=== PATIENT | male | born 1935 | race African-American/Black ===

== ENCOUNTER 2017-03-11 16:41 | Emergency (ER) | payer MEDICARE, BC ==
[~2017-03-11] VITALS: Ht 170.2 cm; Wt 69.4 kg
[2017-03-11] MEDS ORDERED: Morgan Lens TOPIC ONE (17:30)
[2017-03-11] MEDS ORDERED: PredniSONE 20mg tab ORAL ONE (17:30)
[2017-03-11] MEDS ORDERED: NS Irrig 1000ml 1,000 ML IRRIG ONE (17:30)
[2017-03-11] MEDS ORDERED: Proparacaine 0.5% Opth Soln 15ml BOTH EYES ONE (17:30)
[2017-03-11] MEDS ORDERED: DiphenhydrAMINE 50mg/ml Inj IM ONE (17:30)
[2017-03-11] MEDS ORDERED: BENADRYL25 MG ORAL (19:17)
[2017-03-11] MEDS ORDERED: PREDNISONE20 MG ORAL (19:17)
[2017-03-11 19:31] VITALS: BP 145/58
--- NOTE | 2017-03-11 22:56 | Emergency Room Report ---
History of Present Illness General Chief Complaint: Allergies Source: Patient (KATHY HAYES) Present Illness HPI The patient is an 81-year-old male presenting for possible allergic reaction. The patient states he was outside working with plants when he touched his face and then noticed redness and itching. He has also had increased watering to the eyes and redness. He denies any pain. He denies any previous allergic reactions. He has not taken any medications yet. He denies any other symptoms including nausea, vomiting, fever, chills, chest pain, shortness of breath, dizziness (KATHY HAYES) Allergies: Coded Allergies: No Known Allergies (Unverified , 03/11/17) Patient History Past Medical History: see triage record Pertinent Family History: none Reviewed Nursing Documentation: PMH: Agreed, PSxH: Agreed (KATHY HAYES) Nursing Documentation-PMH Past Medical History: No History, Except For Hx Hypertension: Yes Hx Asthma: Yes Hx Diabetes: Yes (KATHY HAYES) Review of Systems All Other Systems: negative except mentioned in HPI (KATHY HAYES) Physical Exam Vital Signs Date Time Temp Pulse Resp B/P Pulse Ox O2 Delivery O2 Flow Rate FiO2 03/11/17 17:11 98.4 84 18 145/58 98 Room Air Sp02 EP Interpretation: reviewed, normal General Appearance: no apparent distress, alert, GCS 15, non-toxic Head: normocephalic, atraumatic Eyes: bilateral eye EOMI, bilateral eye PERRL, bilateral eye Scleral Injection , bilateral eye lid inflammation ENT: hearing grossly normal, normal pharynx, no angioedema, normal voice, uvula midline Neck: full range of motion, supple/symm/no masses Respiratory: chest non-tender, lungs clear, normal breath sounds, no wheezing, speaking full sentences Musculoskeletal: back normal, gait/station normal, normal range of motion, non- tender Neurologic: alert, oriented x3, responsive, motor strength/tone normal, sensory intact, normal gait, speech normal Psychiatric: judgement/insight normal, memory normal, mood/affect normal, no suicidal/homicidal ideation Skin: rash - macular erythematous rash to face Lymphatic: no adenopathy (KATHY HAYES) Medical Decision Making PA Attestation Dr. Rebolledo is my supervising physician. Patient management was discussed with my supervising physician (KATHY HAYES) Medicare Attestation The history of Leodan Cneteno has been reviewed and management options for him have been examined and discussed by Иван Rebolledo. I have personally examined and interviewed the patient. (ИВАН REBOLLEDO M.D.) Diagnostic Impression: Primary Impression: Allergic reaction Qualified Codes: T78.40XA - Allergy, unspecified, initial encounter Additional Impression: Allergic conjunctivitis Qualified Codes: H10.13 - Acute atopic conjunctivitis, bilateral ER Course The patient is an 81-year-old male presenting for possible allergic reaction Differential diagnoses considered but not limited to allergic conjunctivitis, bacterial conjunctivitis, viral conjunctivitis, allergic reaction, contact dermatitis PE: NAD vitals WNL. HEENT exam: There is bilateral conjunctival injection with increased tearing. No angioedema. There is a macular erythematous rash of the face The patient is given IM Benadryl and prednisone Proparacaine was placed in both eyes and the patient is feeling better. Ronald lenses were placed and normal saline was used to flush out both eyes. The patient is feeling much better and he will be discharged home with a prescription for Benadryl and prednisone. ER precautions are given (KATHY HAYES) Last Vital Signs Date Time Temp Pulse Resp B/P Pulse Ox O2 Delivery O2 Flow Rate FiO2 03/11/17 19:31 98.4 92 18 145/58 98 Room Air Status: improved (KATHY HAYES) Disposition: HOME, SELF-CARE Condition: Improved Scripts Prednisone* (PREDNISONE*) 20 Mg Tablet 40 MG ORAL DAILY for 4 Days, #8 TAB Prov: KATHY HAYES P.A. 03/11/17 Diphenhydramine Hcl* (BENADRYL*) 25 Mg Capsule 25 MG ORAL Q6H Y for Itching, #20 CAP Prov: MANANANCECILIOY P.A. 03/11/17 Patient Instructions: Allergies Additional Instructions: I discussed my findings with the patient. All questions and concerns have been answered. Treatment and medication compliance have been addressed. I advised the patient that they need to follow up with PMD in 3-5 days. Return to ED if symptoms worsen, new symptoms arise, or if needed for any reason. Patient verbalized understanding of discharge instructions. KATHY HAYES Mar 11, 2017 22:56 ИВАН REBOLLEDO M.D. Mar 14, 2017 08:25
== END 2017-03-11 19:30 | disposition home or self-care (01) ==
LOC: EMR 17:25
DX: H10.13 Acute atopic conjunctivitis, bilateral (principal); T78.40XA Allergy, unspecified, initial encounter; J45.909 Unspecified asthma, uncomplicated; E11.9 Type 2 diabetes mellitus without complications; I10 Essential (primary) hypertension; X58.XXXA Exposure to other specified factors, initial encounter; Y92.9 Unspecified place or not applicable; Y99.8 Other external cause status
CPT/HCPCS: 65205; 96372; 99284; J1200

== ENCOUNTER 2018-01-19 17:40 | Emergency (ER) | payer OTHER, BC ==
[~2018-01-19] VITALS: Ht 175.3 cm; Wt 67.1 kg
[~2018-01-19 17:40] MED LIST: BENADRYL25 MG ORAL; PREDNISONE20 MG ORAL
[2018-01-19 18:08] VITALS: BP 143/76
[2018-01-19] MEDS ORDERED: Albuterol ud Inhalation HHN ONE (18:30)
[2018-01-19] MEDS ORDERED: Ipratropium 0.02% Inh Soln 2.5ml UD HHN ONE (18:30)
[2018-01-19] MEDS ORDERED: Azithromycin 250mg tab PO ONE (18:30)
--- NOTE | 2018-01-19 18:41 | Emergency Room Report ---
History of Present Illness General Chief Complaint: Upper Respiratory Illness Source: Patient Present Illness HPI Patient presents with 2 days of sore throat and cough. He has wheezing also. Denies any chest pain. Throat pain is quite severe. It's somewhat better when he sits up. He has a history of asthma. Has not been using inhaler. Pain in throat rated 6/10 to me, sharp, worse with swallowing and laying down (rated 9/ 10 to RN). No documented fevers. No NVD, dysuria, joint pain, headache, change vision, rashes. Patient with diabetes and states sugars fairly well controlled. Allergies: Coded Allergies: No Known Allergies (Unverified , 03/11/17) Patient History Past Medical History: see triage record Social History: Denies: smoking Social History Narrative Reviewed Nursing Documentation: PMH: Agreed, PSxH: Agreed Nursing Documentation-PMH Hx Hypertension: Yes Hx Asthma: Yes Hx Diabetes: Yes Review of Systems All Other Systems: negative except mentioned in HPI Physical Exam Vital Signs Date Time Temp Pulse Resp B/P (MAP) Pulse Ox O2 Delivery O2 Flow Rate FiO2 01/19/18 17:49 99.8 110 20 143/76 95 Room Air 99.9 Sp02 EP Interpretation: reviewed, abnormal - evaluated by me as slightly low General Appearance: well appearing, no apparent distress, GCS 15 Head: normocephalic Eyes: bilateral eye normal inspection, bilateral eye PERRL ENT: moist mucus membranes, pharyngeal erythema Neck: supple Respiratory: wheezing - minimal on exhalation Cardiovascular #1: regular rate, rhythm, no edema Cardiovascular #2: 2+ radial (R) Gastrointestinal: normal inspection, normal bowel sounds, non tender, no mass, non-distended Musculoskeletal: back normal, gait/station normal, normal range of motion Neurologic: alert, oriented x3, grossly normal Psychiatric: mood/affect normal Skin: normal inspection, warm/dry Medical Decision Making Diagnostic Impression: Primary Impression: Bronchospasm Additional Impression: Pharyngitis Qualified Codes: J02.9 - Acute pharyngitis, unspecified ER Course Patient with cough, wheezing and sore throat. DDx: pharyngitis, asthma, bronchitis, pneumonia, AMI amongst others. Evaluation with EKG and CXR. Treatment with albuterol/atrovent, decadron and azithromycin. EKG without injury. CXR clear. Improved with treatment. Pulse ox improved. Patient has his albuterol inhaler which is almost full. Patient stable for outpatient observation and treatment. EKG Diagnostic Results Rate: normal Rhythm: NSR ST Segments: no acute changes Rhythm Strip Diag. Results EP Interpretation: yes Rhythm: NSR, no PVC's, no ectopy Chest X-Ray Diagnostic Results Chest X-Ray Diagnostic Results : Chest X-Ray Ordered: Yes # of Views/Limited/Complete: 1 View Indication: Shortness of Breath Interpretation: no consolidation, no effusion, no pneumothorax, no acute cardiopulmonary disease Impression: No acute disease Electronically Signed by: Tomás Dc MD Last Vital Signs Date Time Temp Pulse Resp B/P (MAP) Pulse Ox O2 Delivery O2 Flow Rate FiO2 01/19/18 20:16 99.9 16 143/76 100 Room Air 21 99.9 01/19/18 20:15 72 Status: improved Disposition: HOME, SELF-CARE Condition: Improved Scripts Guaifenesin/Codeine Phos* (ROBITUSSIN AC*) 118 Ml Liquid 5 ML ORAL Q6H Y for For Cough, #90 ML 0 Refills Prov: Tomás Dc M.D. 01/19/18 Azithromycin* (ZITHROMAX*) 250 Mg Tablet 250 MG ORAL DAILY for 4 Days, #4 TAB Prov: Tomás Dc M.D. 01/19/18 Tomás cD M.D. Jan 19, 2018 18:40
[2018-01-19] MEDS ORDERED: AZITHROMYCIN250 MG ORAL (20:11)
[2018-01-19] MEDS ORDERED: GUAIFENESIN-CO118 M1 ORAL (20:11)
[2018-01-19 20:15] VITALS: BP 137/85
[2018-01-19 20:16] VITALS: BP 143/76
--- NOTE | 2018-01-20 12:00 | Diagnostic Imaging Report ---
Indication: Dyspnea Comparison: 12/02/2012 A single view chest radiograph was obtained. Findings: Cardiomediastinal appearance is within normal limits for age. Pulmonary vascularity is appropriate. The diaphragmatic contour is smooth and costophrenic angles are sharp. No pleural effusions are identified. The bones are unremarkable. Impression: No acute findings
--- NOTE | 2018-01-22 20:17 | Cardiology Report ---
APPROVED REPORT EKG Measurement Heart [id number] Normal sinus rhythm Normal ECG
== END 2018-01-19 20:15 | disposition home or self-care (01) ==
LOC: EMR 18:25
DX: J45.909 Unspecified asthma, uncomplicated (principal); J02.9 Acute pharyngitis, unspecified; I10 Essential (primary) hypertension; E11.9 Type 2 diabetes mellitus without complications
CPT/HCPCS: 71045; 93005; 94640; 94664; 99284; J8540